=== PATIENT | female | born 1970 | race Caucasian/White ===

== ENCOUNTER 2023-01-20 09:32 | Outpatient (AMB) | payer OTHER, SELFPAY ==
--- NOTE | 2023-01-20 10:07 | AM.OFFWIN_ITS ---
Intake Vital Signs 01/20/23 10:35 Weight 70.76 kg BP 118/68 Blood Pressure Location Lt brachial Position Sitting Pulse 94 Pulse Source Pulse Oximeter Temp 98.1 F Temp Source Oral Pulse Oximetry (%) 95 Oxygen Delivery Method Room Air Intake Visit Reasons: EP, Cough, congestion [phone] Intake Note: Patient states she been having a cold going on for a wk now. Patient Tobacco Use Status: Never used Tobacco Allergies No Known Allergies Allergy (Verified 01/20/23 10:07) Do you need a note to return to daycare/school/sports/work: Yes HPI HPI Comments History of Present Illness Details 1102 52-year-old female presents to the clini c for evaluation of fatigue, malaise, dry cough, sinus pressure, times 11 days. Patient reports symptoms have been persistent ever since. Patient reports sinus pressure worse and the maxilla region. Patient does report she is coughing up yellow/green sputum. Reports recent sick contacts at work, who have bronchitis. Patient has taken multiple COVID test at home which have been negative. Patient has been using her nebulizer with little to no relief. Denies chest pain, shortness of breath, nausea, vomiting, abdominal pain, headache, vision changes, dizziness and weakness at this time. Eating and drinking well. Physical exam with discomfort with palpation of facial sinuses. Patient well- appearing. Likely sinusitis and bronchitis. Unlikely PE, pneumonia, ACS. No signs of respiratory distress. Plan antibiotics, prednisone, inhaler. Educated patient on diagnosis and treatment plan, answered all question, patient verbalizes understanding. At this time patient will be discharged home, advised to return with new or worsening symptoms. Educated on worrisome signs and symptoms and when to return. At this time I feel comfortable discharge home. [facility] Social History Patient Tobacco Use Status: Never used Tobacco Review of Systems Const Details: Constitutional : No Weight loss, No Fever, No Chills, + Fatigue, + Malaise ENT/Mouth : No sore throat, No Rhinorrhea Eyes: No Eye Pain, No Swelling, No Redness Cardiovascular : No Chest Pain, + SOB, No Dyspnea on Exertion, No Orthopnea, No Edema, No Palpitations Respiratory : + Cough, No Sputum, + Wheezing Gastrointestinal : No Nausea, No Vomiting, No Diarrhea, No Constipation, No abdominal Pain, No Hematochezia, No Melena Genitourinary : No Dysuria, No Urinary Frequency, No Hematuria, Musculoskeletal : No joint pain, No Myalgias, No Joint Swelling Skin : No Skin Lesions, No rash Neuro : No Weakness, No Numbness, No Dizziness, No Headache Psych : No Anxiety/Panic, No Depression Heme/Lymph: No Bruising, No Bleeding,No Lymphadenopathy Endocrine : No Polyuria, No Polydipsia All other systems reviewed and are negative All systems reviewed & are unremarkable except as noted in HPI and below Physical Exam Vital Signs: Last Vital Signs Temp 98.1 F 01/20/23 10:35 Pulse 94 01/20/23 10:35 BP 118/68 01/20/23 10:35 Pulse Ox 95 01/20/23 10:35 Oxygen Delivery Method Room Air 01/20/23 10:35 Vital signs stable Appearance: Alert.? Oriented X3.? No acute distress.? Patient well-appearing with intermittent dry cough during my exam Head: Normocephalic, atraumatic, no step-offs or deformities. Discomfort with palpation of facial sinuses. Eyes: Pupils equal, round and reactive to light.? Neck: Normal inspection.? Neck supple.? CVS: Normal heart rate and rhythm.? Pulses normal.? Respiratory: No respiratory distress.? Breath sounds normal.? Abdomen: Soft and nontender.? Skin: Skin warm and dry.? Normal skin color.? Normal skin turgor.? Extremities: 5/5 strength to bilateral upper and lower extremities Neuro: Oriented X 3.? No motor deficit.? No sensory deficit. CN 2-12 intact Assessment & Plan Assessment & Plan (1) Bronchitis: Code(s): J40 - Bronchitis, not specified as acute or chronic (2) Sinusitis: Code(s): J32.9 - Chronic sinusitis, unspecified Plan Take your medications as prescribed. If you were prescribed antibiotics today, it is important that you take your medication to their entirety, do not skip any doses, do not finish them early. Follow-up with your primary care provider this week. Return to the emergency department with new or worsening symptoms. Such as fevers, chills, chest pain, shortness of breath, nausea, vomiting, dizziness, headache, vision changes, lethargy In case of emergency call 911 Medications: New prednisone 40 mg (2 x 20 mg) PO DAILY 5 days 10 tabs 0RF albuterol sulfate 90 mcg/actuation 2 puffs inhalation Q6H PRN 6.7 grams 0RF shortness of breath or wheezing doxycycline hyclate 100 mg PO BID 7 days 14 caps 0RF Coding Level of Care Code Est Pt Level 3 (26995) Diagnoses Bronchitis J40 Sinusitis J32.9
[2023-01-20 10:35] VITALS: BP 118/68; PULSE 94; TEMP 36.7; O2SAT 95
== END 2023-01-20 11:26 | disposition home or self-care (01) ==
PROVIDERS: Visit Provider Physician Assistant
DX: J40 Bronchitis, not specified as acute or chronic (principal); J32.9 Chronic sinusitis, unspecified
CPT/HCPCS: 99213

== ENCOUNTER 2023-05-21 08:43 | Outpatient (AMB) | payer OTHER, SELFPAY ==
--- NOTE | 2023-05-21 09:01 | MHC.OFFWIV ---
Intake Vital Signs 05/21/23 09:07 Height 5 ft 1 in Weight 156 lb BMI 29.5 BP 110/68 Blood Pressure Location Rt brachial Position Sitting Pulse 77 Pulse Source Pulse Oximeter Temp 97.4 F Temp Source Oral Pulse Oximetry (%) 97 Oxygen Delivery Method Room Air Intake Visit Reasons: EP ?Sinus infection [phone] Intake Note: Pt is here c/o sinus pressure, face pain, headache and runny nose since yesterday. Patient Tobacco Use Status: Never used Tobacco Allergies No Known Allergies Allergy (Verified 05/21/23 09:01) Do you need a note to return to daycare/school/sports/work: No HPI HPI Comments History of Present Illness Details This is a 53-year-old female with a past medical history of gastroesophageal reflux disease, anxiety, depression and seasonal allergies presenting for evaluation of sinus pressure, cough and headache that she has had since yesterday. Patient states ?I get sinus infections all the time. I just need a Z-Stan. ? She states she was recently on antibiotics at the end of February 2023, but they gave me doxycycline and that never works. Patient denies having any fevers, chills, sore throat, difficulty swallowing, cough or other sick contacts. [facility] Social History Patient Tobacco Use Status: Never used Tobacco Review of Systems Const All systems reviewed & are unremarkable except as noted in HPI and below Reports as per HPI, Reports no additional complaints, Denies body aches, Denies chills and Denies fever(s) Eyes Reports no additional complaints ENT Reports no additional complaints, Denies otalgia, Denies facial pain, Reports sinus pressure and Denies sore throat Card Reports no additional complaints Resp Reports no additional complaints Skin/Breast Reports system reviewed and no additional complaints, except as documented Psych Reports no additional complaints Physical Exam Vital Signs: Last Vital Signs Temp 97.4 F 05/21/23 09:07 Pulse 77 05/21/23 09:07 BP 110/68 05/21/23 09:07 Pulse Ox 97 05/21/23 09:07 Oxygen Delivery Method Room Air 05/21/23 09:07 BMI result Body Mass Index 29.5 Const General: cooperative, healthy appearing, comfortable, no acute distress, alert and awake; No lethargic Nutritional Appearance: average body habitus Orientation/consciousness: patient oriented x3 and No lethargic Limitations: no limitations HEENT Head: Yes normal to inspection and Yes normocephalic Ears: hearing grossly normal bilaterally, external ears normal, TM's abnormal bilaterally (TMs bulging bilaterally without erythema; no fluid level), EAC's normal and no periauricular adenopathy General nose exam: Normal external nose present Face and sinus: Yes normal facial exam, Yes sinuses nontender, Yes face symmetric and No erythema Mouth: Normal oral and palatal mucosa present, oropharynx normal, moist mucous membranes and breath no malodorous Teeth and gingiva: dentition normal Throat: Yes posterior oropharynx normal Eyes Conjunctivae: conjunctivae normal Sclerae: sclerae normal Corneas: corneas normal Pupils: Equal, round and reactive pupils present EOM: EOMs intact bilaterally Neck Lymphatic: no lymphadenopathy noted Resp Effort & Inspection: normal respiratory effort Auscultation: clear to auscultation bilaterally Cardio Rate: regular rate Rhythm: regular rhythm Skin General skin exam: no rashes or lesions noted Neuro General: patient oriented x3 Cranial nerves: Yes Equal, round and reactive pupils present Psych Appearance: grossly normal Mental Status: mental status grossly normal Insight: Good insight present (Psych) Judgement: Good judgement present (Psych) Assessment & Plan Assessment & Plan (1) Acute sinusitis: Comment: Patient's symptoms coupled with her examination is consistent with an acute or allergic viral sinusitis and antibiotic therapy is not warranted at this time. Code(s): J01.90 - Acute sinusitis, unspecified Qualifiers: Recurrence: recurrent Sinusitis location: unspecified location Qualified Code(s): J01.91 - Acute recurrent sinusitis, unspecified Plan: Continue Flonase and [id number] antihistamine such as loratadine daily and take ibuprofen as needed for your discomfort. Coding Level of Care Code Est Pt Level 3 (42578) Diagnoses Acute recurrent sinusitis, unspecified location J01.91 Recurrence: recurrent Sinusitis location: unspecified location Time Spent (min) 20
[2023-05-21 09:07] VITALS: BP 110/68; PULSE 77; TEMP 36.3; O2SAT 97; BMI 29.5
== END 2023-05-21 10:52 | disposition home or self-care (01) ==
PROVIDERS: Visit Provider Physician Assistant
DX: J01.91 Acute recurrent sinusitis, unspecified (principal)
CPT/HCPCS: 99213

== ENCOUNTER 2024-12-30 07:52 | Outpatient (AMB) | payer OTHER, SELFPAY ==
--- NOTE | 2024-12-30 07:53 | MHC.OFFWIV ---
Intake Vital Signs 12/30/24 07:54 Height 5 ft 1 in Weight 157 lb BMI 29.7 BP 110/62 Blood Pressure Location Rt brachial Position Sitting Respiration 16 Pulse 84 Pulse Source Pulse Oximeter Temp 98.2 F Temp Source Oral Pulse Oximetry (%) 98 Oxygen Delivery Method Room Air Intake Visit Reasons: EP Shingles? Intake Note: Pt is here today c/o Rt side of upper torse rash Patient Tobacco Use Status: Never used Tobacco Allergies No Known Allergies Allergy (Verified 12/30/24 07:53) HPI HPI Comments History of Present Illness Details History - The patient is a 54-year-old female presenting with a rash. - The rash is itchy and has been present for about a week, primarily affecting one side of the body, starting on the breast and spreading. - The patient has a history of herpes zoster approximately 10-15 years ago, but the current rash does not resemble her previous shingles experience. - The rash is characterized by itchy, pimply lesions widespread on the chest, back and right side of the abdomen and buttock. - The patient has tried using antibiotic gel and Benadryl to alleviate the symptoms, but these interventions have not been effective. - The patient has celiac disease and adheres to a strict gluten-free diet, with no recent changes in diet or personal care products. - She denies new foods, lotions, soaps, detergents, clothes, medications, pets, or travel. - She denies bug bites. Physical Exam General: Cooperative, healthy appearing, comfortable, no acute distress and well developed Orientation: Patient oriented x3 Limitations: No limitations Respiratory: Normal respiratory effort and able to speak in complete sentences. Clear to auscultation bilaterally. No w/r/r noted. Cardiovascular: RRR, no m/r/g noted. Normal S1 and S2 Skin: Diffuse, erythematous, raised, dry, non-tender lesions noted on the right breast, mid chest wall, right flank, back, and buttock. No discharge noted. No bleeding noted. Patient was informed and verbally consented to the use of an ambient scribe for clinic note documentation during this visit [facility] Social History Patient Tobacco Use Status: Never used Tobacco Review of Systems Const All systems reviewed & are unremarkable except as noted in HPI and below Physical Exam Vital Signs: Last Vital Signs Temp 98.2 F 12/30/24 07:54 Pulse 84 12/30/24 07:54 Resp 16 12/30/24 07:54 BP 110/62 12/30/24 07:54 Pulse Ox 98 12/30/24 07:54 Oxygen Delivery Method Room Air 12/30/24 07:54 BMI result Body Mass Index 29.7 Assessment & Plan Assessment & Plan (1) Rash: Code(s): R21 - Rash and other nonspecific skin eruption Plan Most likely dermatitis vs allergic reaction vs bug bites and its unlikely shingles plan - Pepcid, Benadryl, and prednisone, along with hydrocortisone cream for topical relief. - The patient is advised to use unfragranced Dove soap to avoid potential irritants. - Follow-up with a cigarette machine operator is recommended if symptoms persist. Medications: New hydrocortisone 2.5% 1 appl topical bid-tid PRN 20 grams 0RF Skin Irritation 7 days famotidine (Pepcid) 20 mg PO DAILY 30 tabs 0RF prednisone 40 mg (2 x 20 mg) PO DAILY 10 tabs 0RF 5 days Coding Level of Care Code Est Pt Level 3 (46516) Diagnoses Rash R21
[2024-12-30 07:54] VITALS: BP 110/62; PULSE 84; RESP 16; TEMP 36.8; O2SAT 98; BMI 29.7
--- OUTSIDE RECORDS SUMMARY | 2024-12-30 07:55 | XMS_ITS | Clinical Summary ---
Author Organization [facility] Address [address] [place] [address] Phone Care Team Providers Care Chief Console Operator Name Role Phone Magy Mc MD Unavailable Pcp, Unknown Primary Care Provider Unavailabl e Allergies No known active allergies Medications montelukast (SINGULAIR) 10 mg tablet Take 1 tablet by mouth every evening. Active cetirizine (ZYRTEC) 10 MG tablet Take 1 tablet by mouth daily as needed. Active fluticasone propionate (FLONASE) 50 mcg/actuation nasal spray 1 spray in each nostril Nasally Once a day Active albuterol (PROVENTIL HFA) 90 mcg/actuation inhaler 2 puffs as needed Inhalation every 4 hrs Active esomeprazole (NEXIUM) 20 MG capsule Take 1 capsule by mouth daily. Active PARoxetine (PAXIL) 20 MG tablet Take 1 tablet (20 mg total) by mouth every morning. 30 tablet 11 0 Active Additional Information Patient not taking.Reported on 08/05/2023 dextroamphetami ne-amphetamine (ADDERALL XR) 20 MG 24 hr capsule Take 20 mg by mouth every morning. 4 Active PARoxetine (PAXIL) 30 MG tablet Take 1 tablet by mouth every morning. 4 Active estradioL (VIVELLE-DOT) 0.05 mg/[address] 1 patch onto the skin 2 (two) times a week. 26 patch 3 4 Active progesterone (PROMETRIUM) 200 mg capsule Take 1 capsule (200 mg total) by mouth nightly at bedtime. 90 capsule 3 4 Active Active Problems Problem Noted Date Diagnosed Date Perimenopausal vasomotor symptoms 12/04/2023 Overview (12/04/2023): Severe disruptive hot flashes, night sweats Assessment & Plan (12/04/2023 9:09 PM EDT): Discussed treatment of perimenopausal hot flashes and night sweats, nonhormonal as well as hormonal options, risks and benefits pros and cons of each Elects HRT, will try CombiPatch although sometimes that can be backordered. If that is an issue, then would do a separate estradiol patch with daily progesterone oral gel cap Persistent nodularity of breast 02/02/2019 Assessment & Plan (02/02/2019 1:17 PM EDT): The axillary lump is dermal in origin, no specific concern there, part of the rash response to new irritating deodorant The asymmetry with more nodularity in the right upper outer quadrant is probably not new, however I recommend an exam with breast specialist and review of the images from last mammogram to be sure this is stable (Images part of the [facility] system, so I advise a consult there; she would prefer any surgery there as well) Family History Medical History Relation Comments Brain cancer Maternal Grandfather Breast cancer Maternal Grandmother Parkinson's disease Paternal Grandfather Relation Status Comments Maternal Grandfather Maternal Grandmother Paternal Grandfather Social History Tobacco Use Types Packs/Day Years Used Date Smoking Tobacco: Never Smokeless Tobacco: Never Tobacco Cessation:Counseling Given: Not Answered Alcohol Use Standard Drinks/Week Comments Yes 0 (1 standard drink = 0.6 oz pur e alcohol) Casual Education Answer Date Recorded Are you interested in more education? Not on jt e 08/16/2022 Are you concerned about learning? Not on file 08/16/2022 No 08/16/2022 No 08/16/2022 Digital Access Answer Date Recorded No 09/14/2022 No 09/14/2022 Reliable internet access at home? Not on file 09/14/2022 Device with a working camera? Not on file Comments No Sex and Gender Information Value Date Recorded Sex Assigned at Not on file Legal Sex Female 9:33 PM EDT Gender Identity Not on file Sexual Orientation Not on file Last Filed Vital Signs Vital Sign Reading Time Taken Comments Blood Pressure 128/82 08/05/2023 3:22 PM EDT Pulse - - Temperature - - Respiratory Rate - - Oxygen Saturation - - Inhaled Oxygen Concentration - - Weight 70.3 kg (155 lb) 08/05/2023 3:22 PM EDT Height 154.9 cm (5' 1 ) 08/05/2023 3:22 PM EDT Body Mass Index 29.29 08/05/2023 3:22 PM EDT Plan of Treatment Health Maintenance Due Date Last Done Comments Adult Td,Tdap Booster 1971 LIPID PANEL 1971 DEPRESSION SCREENING 1983 HEPATITIS C SCREENING 1989 HIV ONE-TIME SCREENING (18-6 5 YEARS) 1989 SCREENING FOR DIABETES 2006 COLOGUARD 2016 COLONOSCOPY 2016 COLORECTAL CANCER SCREENING 2016 FIT TEST 2016 FOBT 2016 SIGMOIDOSCOPY 2016 VIRTUAL COLONOSCOPY 2016 MAMMOGRAM 04/10/2017 04/10/2015 PNEUMOCOCCAL VACCINES (50+ years) (1 of 1 - PCV) 2021 ZOSTER VACCINES (1 of 2) 2021 INFLUENZA VACCINE (#1) 2024 , 02/22/2021, 02/04/2020 COVID-19 VACCINE (3 - 2024-2 6 season) 2024 07/27/2020, 06/27/2020 PAP SMEAR 08/04/2028 08/05/2023, 05/11/2015 SMOKING STATUS SCREENING (On ce After 26 Yrs) Completed 08/05/2023 HEPATITIS A VACCINES Aged Out No long er eligible based on patient's age to complete this topic HIB VACCINES Aged Out No longer eligi ble based on patient's age to complete this topic MENINGOCOCCAL VACCINES (ACWY) Aged Out No longer eligible based on patient's age to complete this topic MENINGOCOCCAL VACCINES (B) Aged Out N o longer eligible based on patient's age to complete this topic Medical Devices Not on file Procedures Procedure Name Priority Date/Time Associated Diagnosis Comments PAP TEST Routine 08/05/2023 12:00 AM EDT from Last 3 Months or Most Recently Relevant to Health Maintenance Results * Pap Test (08/05/2023 12:00 AM EDT) 08/05/2023 08/06/2023 8:4 9 AM EDT Narrative SEE NARRATIVE - 08/12/2023 11:56 AM EDT [address] [address] Artillery Specialist: Carla Phillips MD WHIP OPERATOR Cytology Report FINAL DIAGNOSIS A. PAP SMEAR (SUREPATH) CE: SPECIMEN ADEQUACY: Satisfactory for evaluation; transformation zone absent/insufficient. INTERPRETATION: NEGATIVE FOR INTRAEPITHELIAL LESION OR MALIGNANCY. Electronically Signed Out By: RAZ Shields(ASCP) The Pap test is a screening test primarily for squamous cancers and precursors and has associated false-negative and false-positive results. New technologies such as liquid-based preparations may decrease but will not eliminate all false-negative results. Regular sampling and follow-up of unexplained clinical signs and symptoms are recommended to minimize false negative results. PROCEDURES/ADDENDA HPV Testing (Requested) Ordered Date: 08/06/2023 A. PAP SMEAR (SUREPATH) CE: Human Papilloma Virus Test NEGATIVE for high-risk Human Papilloma Virus types 16, 18, 45 and the Other high risk probe set (Includes 31, 33, 35, 39, 51, 52, 56, 58, 59, 66, 68) Note: Testing performed by [employer] Onclarity HR-HPV analysis. Clinical correlation is advised. This HPV test was performed at [facility], [address] [place] [address]. This test has been FDA approved for both SurePath and ThinPrep cervical cytology specimens. The accuracy and precision of this test for all other specimen sources has been verified in the Cytopathology Laboratory of the [facility] and has not been cleared or approved by the U.S. Food and Drug Administration. Clinical correlation is advised. CLINICAL HISTORY Date of Last Menstrual Period: 07-25-2023 Other Clinical Conditions: Screening Pap SPECIMEN SOURCE A: PAP SMEAR (SUREPATH) CE Patient Name: APPLE ROBBINS : 1970 (Age: 53) Sex: F [facility] Location: [facility] Date of Collection: 08/05/2023 Date of Reported: 08/12/2023 11:56 Results to: Magy Mc MD Magy Mc MD CYTOLOGY ORDERABLES Final Result SEE NARRATIVE from Last 3 Months or Most Recently Relevant to Health Maintenance Insurance ([place]) [address] [place] [address] [place], [place] [address] [place], [place] [address] [facility] Care Teams Chief Console Operator Relationship Specialty Start Date End Date Pcp, Unknown PCP - General 08/13/17 Magy Mc MD [address] [place] [address], [address] [address] [email or web address] Historical LMR Provider 02/06/17 Additional Source Comments The information contained in this document represents components of the legal health record. It is not the complete legal health record.[facility]
--- OUTSIDE RECORDS SUMMARY | 2024-12-30 07:56 | XMS_ITS | Patient Health Record ---
Author Organization [facility] Address [address] [place] [address] Support Name Relationship Address Phone RAHEEM CHAVEZ Guarantor Unknown [phone] Reason For Referral No Information Medications Medication SIG (Take, Route, Fr equency, Duration) Notes Start Date End Date Status Flovent HFA 220MCG 2 INHALED BID; Duration: -3 [facility] Active Flonase 50MCG 2 Nasal daily; Duration: -3 [facility] 05/03/19 12 Active Omeprazole 40MG 1 ORAL daily; Duration: -3 [facility]- 013 Active Paxil 20MG 1 ORAL every morning ; Duration: -3 [facility] 11/25/2012 Active Singulair 10 MG 1 ORAL daily; Duration: -3 [facility]- 012 Active Problems Problem Type SNOMED Code ICD Code Onset Dates Problem Status W/U Status Risk Notes Problem Anxiety state (275337473) Anxiety state, unspecified (300.00) Active confirmed Major Problem Panic disorder without agoraphobia (30032726) Panic disorder without agoraphobia (300.01) Active confirmed Major Problem Allergic rhinitis (37474686) Allergic rhinitis, cause unspecified (477.9) Active confirmed Major Problem Acute maxillary sinusitis (52598582) Acute maxillary sinusitis (461.0) Active confirmed Diag Problem Acute sinusitis (43822651) Acute sinusitis, unspecified (461.9) Active confirmed Diag Problem Acute upper respiratory infection (66102922) Acute upper respiratory infections of unspecified site (465.9) Active confirmed Diag Problem Gynecological examination normal (158523611138859) Routine gynecological examination (V72.31) Active confirmed Diag Plan Of Treatment No Information Insurance Providers Payer Name Payer Address Payer Phone Subscriber Number Group Number Insured Name Patient Relationship to Insured Coverage Start Date Coverage End Date [facility] [address] [place] [id number] [phone] [id number] RAHEEM CHAVEZ Self - patient is the insured
== END 2024-12-30 08:43 | disposition home or self-care (01) ==
PROVIDERS: Visit Provider Physician Assistant Medical
DX: R21 Rash and other nonspecific skin eruption (principal)